=== PATIENT | female | born 1995 | race Caucasian/White ===

== ENCOUNTER 2019-02-05 10:22 | Emergency (ER) | payer MEDICAID, OTHER ==
[~2019-02-05] VITALS: Ht 167.6 cm; Wt 74.8 kg
--- NOTE | 2019-02-05 10:41 | NUR ---
PT A/OX4, PRESENTS TO THE ER C/O RLQ ABD PAIN X 1 DAY. PAIN IS NON-PROVOKED, CRAMPING IN QUALITY, RADIATES TO THE BACK, 7/10, CONSTANT. PT REPORTS LBM APPROXIMATELY 2 DAYS AGO, WHICH IS NORMAL FOR HER. ABD NON-DISTENDED IN APPEARANCE. PT DENIES C/P, SOB, N/V/D, DIZZINESS, HEADACHE.
[2019-02-05 10:52] LABS: *BILIRUBIN,URIN NEGATIVE (NEGATIVE); *COLOR,URINE YELLOW (YELLOW); *KETONES,URINE NEGATIVE (NEGATIVE); *URINE HCG, QUAL NEGATIVE (NEGATIVE); *UROBILINOGEN,URINE 0.2 E.U./dl (NORMAL); LEUKOCYTE ESTERASE ,URINE TRACE (NEGATIVE); NITRITE, URINE NEGATIVE (NEGATIVE); UGLUCOSE NEGATIVE (NEGATIVE)
--- NOTE | 2019-02-05 10:59 | NUR ---
PABLITO THOMAS AT BEDSIDE FOR MSE.
[2019-02-05 11:01] LABS: *BLOOD, URINE TRACE (NEGATIVE); *CLARITY,URINE HAZY (CLEAR)
[2019-02-05 11:07] LABS: BACTERIA,URINE MANY /HPF (NONE SEEN); RBC,URINE 0-3 /HPF (0-3); SQUAMOUS EPITHELIAL CELL,UR MANY /HPF (NONE SEEN); YEAST,URINE FEW /HPF (NONE SEEN)
[2019-02-05 11:08] LABS: MUCUS,URINE FEW /LPF (0-FEW)
[2019-02-05] MEDS ORDERED: HYDROCODONE/APAP 5-325MG TABLET ONE (11:14)
[2019-02-05] MEDS ORDERED: HYDROCODONE/APAP 5-325MG TABLET PO ONE (11:15)
[2019-02-05] MEDS ORDERED: IBUPROFEN 800 MG TABLET ONE (11:16)
[2019-02-05] MEDS ORDERED: IBUPROFEN 800 MG TABLET PO ONE (11:30)
--- NOTE | 2019-02-05 11:51 | NUR ---
US TECH AT BEDSIDE.
--- NOTE | 2019-02-05 12:25 | NUR ---
Patient discharged to home in stable conditon. Written and verbal after care instructions given. Patient verbalizes understanding of instructions. ALL BELONGINGS W/ PT. PT SELF-AMBULATED W/O DIFFICULTY.
[2019-02-05 12:26] VITALS: BP 116/72
== END 2019-02-05 12:26 | disposition home or self-care (01) ==
LOC: ER 10:22
DX: N83.201 Unspecified ovarian cyst, right side (principal)
CPT/HCPCS: 84703; A4663

== ENCOUNTER 2019-02-06 15:17 | Emergency (ER) | payer OTHER ==
[~2019-02-06] VITALS: Ht 167.6 cm; Wt 74.8 kg
--- NOTE | 2019-02-06 16:03 | NUR ---
PABLITO THOMAS AT BEDSIDE FOR MSE.
[2019-02-06] MEDS ORDERED: KETOROLAC TROMETHAMINE 30 MG INJ ONE (17:26)
[2019-02-06] MEDS ORDERED: ONDANSETRON 4 MG/2 ML VIAL ONE (17:26)
[2019-02-06] MEDS ORDERED: ONDANSETRON ODT 4 MG TAB.RAPDIS SL ONE (17:30)
[2019-02-06] MEDS ORDERED: KETOROLAC TROMETHAMINE 30 MG INJ IM ONE (17:30)
[2019-02-06] MEDS ORDERED: ONDANSETRON 4 MG/2 ML VIAL IM ONE (17:45)
[2019-02-06 18:39] VITALS: BP 110/62
== END 2019-02-06 18:39 | disposition home or self-care (01) ==
LOC: ER 15:17
DX: N83.201 Unspecified ovarian cyst, right side (principal)
CPT/HCPCS: 76856; 96372 ×2; 99284; J1885; J2405; A4663

== ENCOUNTER 2019-02-19 10:47 | Emergency (ER) | payer OTHER, MEDICAID ==
[~2019-02-19] VITALS: Ht 167.6 cm; Wt 74.8 kg
[2019-02-19] MEDS ORDERED: HYDROMORPHONE 1 MG/1 ML DISP.SYRIN IV ONE (11:30)
[2019-02-19] MEDS ORDERED: ONDANSETRON 4 MG/2 ML VIAL IV ONE (11:30)
[2019-02-19] MEDS ORDERED: IV NORMAL SALINE 1000 ML BAG IV ONE ×2 (11:30→12:45)
[2019-02-19] MEDS ORDERED: HYDROMORPHONE 1 MG/1 ML DISP.SYRIN ONE (11:31)
[2019-02-19] MEDS ORDERED: ONDANSETRON 4 MG/2 ML VIAL ONE ×2 (11:31→12:48)
[2019-02-19 11:45] LABS: BASOPHILS % (AUTO) 0.3 % (0.0-2.0); EOSINOPHILS # (AUTO) 0.1 K/uL (0.0-0.7); EOSINOPHILS % (AUTO) 0.6 % (0.0-7.0); HEMATOCRIT 38.6 % (31.2-41.9); HEMOGLOBIN 13.3 g/dL (10.9-14.3); LYMPHOCYTES # (AUTO) 1.3 K/uL (20.0-40.0); LYMPHOCYTES % (AUTO) 12.1 % (20.5-51.5); MEAN CORPUSCULAR HGB CONC 35 g/dL (32.3-35.6); MONOCYTES # (AUTO) 0.4 K/uL (2.0-10.0); MONOCYTES % (AUTO) 3.7 % (0.0-11.0); NEUTROPHILS # (AUTO) 8.9 K/uL (1.8-8.9); NEUTROPHILS % (AUTO) 83.3 % (38.5-71.5); PLATELET COUNT (AUTO) 303 K/uL (179-408); RED BLOOD CELL COUNT(AUTO) 4.43 MIL/uL (3.63-4.92); WHITE BLOOD COUNT (AUTO) 10.7 K/uL (3.8-11.8)
[2019-02-19 11:55] LABS: CARBON DIOXIDE 24 mmol/L (21-32); CHLORIDE 102 mmol/L (98-107); CREATININE 0.7 mg/dL (0.6-1.3); GLUCOSE 104 mg/dL (74-106); POTASSIUM 4.3 mmol/L (3.5-5.1); UREA NITROGEN, BLOOD 8 mg/dL (7-18)
[2019-02-19 12:00] LABS: ALANINE AMINOTRANSFERASE 23 U/L (14-59); ALKALINE PHOSPHATASE 51 U/L (50-136); ASPARTATE AMINOTRANSFERASE 14 U/L (15-37); BILIRUBIN,DIRECT 0.1 mg/dL (0.0-0.2); BILIRUBIN,TOTAL 0.3 mg/dL (0.2-1.0); LIPASE 125 U/L (73-393); TOTAL PROTEIN, SERUM 8.1 g/dL (6.4-8.2)
--- NOTE | 2019-02-19 12:32 | NUR ---
Female print line operator accompanied female patient for ( [employer] tech).
[2019-02-19] MEDS ORDERED: ONDANSETRON IV *ER 4 MG/2 ML VIAL IV ONE (12:45)
--- NOTE | 2019-02-19 13:01 | NUR ---
Patient is resting comfortably in bed with eyes closed,NAD noted.
--- NOTE | 2019-02-19 15:06 | NUR ---
IV removed. Catheter intact and site benign. Pressure and 4x4 gauze applied to site. No bleeding noted.
[2019-02-19 15:09] VITALS: BP 110/76
== END 2019-02-19 15:10 | disposition home or self-care (01) ==
LOC: ER 10:47
DX: R10.31 Right lower quadrant pain (principal); R11.2 Nausea with vomiting, unspecified; K59.00 Constipation, unspecified
CPT/HCPCS: 36415; 71045; 76856; 80048; 80076; 83690; 84702; 85025; 93005; 96361; 96374; 96375; 96376; 99284; J1170; J2405 ×2; A4663; J7030

== ENCOUNTER 2019-10-28 15:46 | Emergency (ER) | payer MEDICAID, OTHER ==
[~2019-10-28] VITALS: Ht 167.6 cm; Wt 74.8 kg
--- NOTE | 2019-10-28 15:50 | NUR ---
Dr Sweet at the bedside for MSE.
[2019-10-28] MEDS ORDERED: CEFTRIAXONE 1 G VIAL ONE (15:59)
[2019-10-28] MEDS ORDERED: LIDOCAINE HCL 1% 20 ML VIAL ONE (15:59)
[2019-10-28] MEDS: CEFTRIAXONE 1 G VIAL IM ONE (16:02)
[2019-10-28] MEDS ORDERED: IBUPROFEN 600 MG TABLET ONE (16:04)
[2019-10-28] MEDS: IBUPROFEN 600 MG TABLET PO ONE (16:13)
[2019-10-28 16:18] VITALS: BP 127/77
--- NOTE | 2019-10-28 16:20 | NUR ---
Patient discharged to home in stable conditon. Written and verbal after care instructions given. Patient verbalizes understanding of instructions.
== END 2019-10-28 16:20 | disposition home or self-care (01) ==
LOC: ER 15:47
DX: J02.9 Acute pharyngitis, unspecified (principal); R51 Headache
CPT/HCPCS: 96372; 99283; J0696; J3490; A4663

== ENCOUNTER 2019-11-11 08:42 | Emergency (ER) | payer MEDICAID, OTHER ==
[~2019-11-11] VITALS: Ht 167.6 cm; Wt 74.8 kg
[2019-11-11] MEDS ORDERED: MORPHINE SULFATE 2 MG/1 ML DISP.SYRIN IV ONE (09:30)
[2019-11-11] MEDS ORDERED: IV NORMAL SALINE 1000 ML BAG IV ONE ×2 (09:30→12:15)
[2019-11-11] MEDS ORDERED: ONDANSETRON 4 MG/2 ML VIAL IV ONE ×3 (09:30→14:45)
[2019-11-11 09:40] LABS: *CLARITY,URINE CLOUDY (CLEAR); *COLOR,URINE AMBER (YELLOW)
[2019-11-11 09:41] LABS: *BILIRUBIN,URIN NEGATIVE (NEGATIVE); *BLOOD, URINE 3+ (NEGATIVE); *KETONES,URINE NEGATIVE (NEGATIVE); *UROBILINOGEN,URINE 0.2 E.U./dl (NORMAL); LEUKOCYTE ESTERASE ,URINE TRACE (NEGATIVE); NITRITE, URINE NEGATIVE (NEGATIVE); UGLUCOSE NEGATIVE (NEGATIVE)
[2019-11-11 09:46] LABS: BASOPHILS % (AUTO) 0.7 % (0.0-2.0); EOSINOPHILS # (AUTO) 0.1 K/uL (0.0-0.7); EOSINOPHILS % (AUTO) 1.1 % (0.0-7.0); HEMATOCRIT 39.2 % (31.2-41.9); HEMOGLOBIN 13.4 g/dL (10.9-14.3); LYMPHOCYTES # (AUTO) 1.8 K/uL (20.0-40.0); LYMPHOCYTES % (AUTO) 28.1 % (20.5-51.5); MEAN CORPUSCULAR HEMOGLOBIN 30.5 uug (24.7-32.8); MEAN CORPUSCULAR HGB CONC 34 g/dL (32.3-35.6); MEAN CORPUSCULAR VOLUME 88.8 fL (75.5-95.3); MONOCYTES # (AUTO) 0.5 K/uL (2.0-10.0); MONOCYTES % (AUTO) 8.3 % (0.0-11.0); NEUTROPHILS # (AUTO) 3.9 K/uL (1.8-8.9); NEUTROPHILS % (AUTO) 61.8 % (38.5-71.5); PLATELET COUNT (AUTO) 384 K/uL (179-408); RED BLOOD CELL COUNT(AUTO) 4.41 MIL/uL (3.63-4.92); WHITE BLOOD COUNT (AUTO) 6.4 K/uL (3.8-11.8)
--- NOTE | 2019-11-11 09:46 | NUR ---
PT IS IN ROOM #2A. DR AVILA EVALUATED THE PT.
[2019-11-11 09:54] LABS: *URINE HCG, QUAL NEGATIVE (NEGATIVE)
[2019-11-11 09:55] LABS: CREATININE 0.7 mg/dL (0.6-1.3); POTASSIUM 3.6 mmol/L (3.5-5.1)
[2019-11-11 09:55] LABS: BACTERIA,URINE R /HPF (NONE SEEN); RBC,URINE TNTC /HPF (0-3); SQUAMOUS EPITHELIAL CELL,UR MANY /HPF (NONE SEEN)
[2019-11-11 10:09] LABS: BILIRUBIN,DIRECT 0.1 mg/dL (0.0-0.2); BILIRUBIN,TOTAL 0.5 mg/dL (0.2-1.0); TOTAL PROTEIN, SERUM 7.6 g/dL (6.4-8.2)
[2019-11-11] MEDS ORDERED: ONDANSETRON 4 MG/2 ML VIAL ONE ×3 (10:14→14:36)
[2019-11-11] MEDS ORDERED: MORPHINE SULFATE 4 MG/1 ML DISP.SYRIN ONE ×2 (10:14→10:42)
[2019-11-11] MEDS ORDERED: MORPHINE SULFATE 4 MG/1 ML DISP.SYRIN IV ONE (10:15)
[2019-11-11] MEDS ORDERED: HYDROMORPHONE 1 MG/1 ML DISP.SYRIN IV ONE (12:00)
[2019-11-11] MEDS ORDERED: HYDROMORPHONE 1 MG/1 ML DISP.SYRIN ONE (12:09)
--- NOTE | 2019-11-11 12:33 | NUR ---
Female relay operator accompanied female patient for (dr López).
--- NOTE | 2019-11-11 12:37 | NUR ---
DR AVILA TALKED TO DR RAO ABOUT PT's DIAGNOSIS.
[2019-11-11] MEDS ORDERED: PANTOPRAZOLE SODIUM 40 MG VIAL IV ONE (12:45)
[2019-11-11] MEDS ORDERED: PANTOPRAZOLE SODIUM 40 MG VIAL ONE (13:04)
[2019-11-11] MEDS ORDERED: DEXTROSE 50% 50 ML DISP.SYRIN ONE (14:12)
[2019-11-11] MEDS ORDERED: DEXTROSE 50% 50 ML DISP.SYRIN IV ONE (14:15)
[2019-11-11] MEDS ORDERED: diphenhydrAMINE 50 MG/1 ML VIAL ONE (14:32)
[2019-11-11] MEDS ORDERED: METOCLOPRAMIDE HCL 10 MG/2 ML VIAL ONE (14:33)
[2019-11-11] MEDS ORDERED: diphenhydrAMINE 50 MG/1 ML VIAL IV ONE (14:45)
[2019-11-11] MEDS ORDERED: METOCLOPRAMIDE HCL 10 MG/2 ML VIAL IV ONE (14:45)
--- NOTE | 2019-11-11 16:16 | NUR ---
pt was d/c'D to home. d/c instructions given to the pt by dr López.
[2019-11-11 16:19] VITALS: BP 125/77
== END 2019-11-11 16:19 | disposition home or self-care (01) ==
LOC: ER 08:42
DX: R10.31 Right lower quadrant pain (principal); R11.10 Vomiting, unspecified; N93.9 Abnormal uterine and vaginal bleeding, unspecified
CPT/HCPCS: 36415; 74176; 76705; 76856; 80048; 80076; 81000; 81001; 83690; 84703; 85025; 96361; 96374; 96375; 96376; 99284; C9113; J1170; J2270 ×2; J2405 ×3; J3490; A4663; J1200; J2765; J7030

== ENCOUNTER 2019-11-16 19:59 | Emergency (ER) | payer SELFPAY ==
[~2019-11-16] VITALS: Ht 167.6 cm; Wt 74.8 kg
[2019-11-16] MEDS ORDERED: BIRTHCONTROL 1 TAB PO DAILY (20:10)
[2019-11-16] MEDS ORDERED: OMEP40CA PO (20:10)
[2019-11-16 20:38] LABS: BASOPHILS # (AUTO) 0.1 K/uL (0.0-8.0); BASOPHILS % (AUTO) 1.3 % (0.0-2.0); EOSINOPHILS # (AUTO) 0.3 K/uL (0.0-0.7); HEMATOCRIT 38.9 % (31.2-41.9); HEMOGLOBIN 13.4 g/dL (10.9-14.3); LYMPHOCYTES # (AUTO) 2.6 K/uL (20.0-40.0); LYMPHOCYTES % (AUTO) 27.6 % (20.5-51.5); MEAN CORPUSCULAR HEMOGLOBIN 30.5 uug (24.7-32.8); MEAN CORPUSCULAR HGB CONC 35 g/dL (32.3-35.6); MEAN CORPUSCULAR VOLUME 88.1 fL (75.5-95.3); MONOCYTES # (AUTO) 0.8 K/uL (2.0-10.0); MONOCYTES % (AUTO) 8.9 % (0.0-11.0); NEUTROPHILS # (AUTO) 5.5 K/uL (1.8-8.9); NEUTROPHILS % (AUTO) 59.2 % (38.5-71.5); PLATELET COUNT (AUTO) 379 K/uL (179-408); RED BLOOD CELL COUNT(AUTO) 4.41 MIL/uL (3.63-4.92); WHITE BLOOD COUNT (AUTO) 9.4 K/uL (3.8-11.8)
[2019-11-16 20:46] LABS: CREATININE 0.8 mg/dL (0.6-1.3); POTASSIUM 4.4 mmol/L (3.5-5.1)
[2019-11-16 20:52] LABS: BILIRUBIN,TOTAL 0.6 mg/dL (0.2-1.0)
--- NOTE | 2019-11-16 21:03 | NUR ---
Pt provided urine sample, sent to lab.
[2019-11-16 21:07] LABS: *CLARITY,URINE CLEAR (CLEAR); *COLOR,URINE YELLOW (YELLOW); PH,URINE 7.5 (5.0-8.0); UGLUCOSE NEGATIVE (NEGATIVE)
[2019-11-16 21:08] LABS: *BILIRUBIN,URIN NEGATIVE (NEGATIVE); *KETONES,URINE NEGATIVE (NEGATIVE); *URINE HCG, QUAL NEGATIVE (NEGATIVE); *UROBILINOGEN,URINE 0.2 E.U./dl (NORMAL); LEUKOCYTE ESTERASE ,URINE NEGATIVE (NEGATIVE); NITRITE, URINE NEGATIVE (NEGATIVE)
[2019-11-16 21:09] LABS: *BLOOD, URINE TRACE (NEGATIVE)
[2019-11-16 21:13] LABS: SQUAMOUS EPITHELIAL CELL,UR FEW /HPF (NONE SEEN); WBC,URINE 0-3 /HPF (0-3)
--- NOTE | 2019-11-16 22:14 | NUR ---
Patient discharged to home in stable conditon. Written and verbal after care instructions given. Patient verbalizes understanding of instructions. PATIENT LEFT WITH STABLE GAIT.
[2019-11-16 22:15] VITALS: BP 114/45
== END 2019-11-16 22:15 | disposition home or self-care (01) ==
LOC: ER 19:59
DX: N83.202 Unspecified ovarian cyst, left side (principal); N93.9 Abnormal uterine and vaginal bleeding, unspecified; Z79.899 Other long term (current) drug therapy
CPT/HCPCS: 36415; 76856; 84703; 85025; A4663

== ENCOUNTER 2021-10-07 20:18 | Emergency (ER) | payer MEDICAID ==
[~2021-10-07] VITALS: Ht 167.6 cm; Wt 77.1 kg
[~2021-10-07 20:18] MED LIST: BIRTHCONTROL 1 TAB PO DAILY; OMEP40CA PO
--- NOTE | 2021-10-07 22:00 | NUR ---
PT AMBULATED TO ER WITH STEADY GAIT C/O LT BIG TOE PAIN X1 WEEK WITH SWELLING AND REDNESS THAT STARTED 3 DAYS AGO.
--- NOTE | 2021-10-07 22:04 | NUR ---
DR. MENSAH AT BEDSIDE, MSE IN PROGRESS.
[2021-10-07] MEDS: LIDOCAINE HCL 1% 20 ML VIAL IJ ONE (23:23)
[2021-10-07] MEDS: NEOMY/BACITRA/POLYMYXIN B OINT UD PACKET TP ONE (23:36)
[2021-10-07] MEDS ORDERED: NEOMY/BACITRA/POLYMYXIN B OINT UD PACKET TP ONE (23:37)
[2021-10-07] MEDS ORDERED: CEPH500C2 PO (23:39)
[2021-10-07 23:44] VITALS: BP 135/80
--- NOTE | 2021-10-07 23:44 | NUR ---
Patient discharged to home in stable condition. Written and verbal after care instructions given. Patient verbalizes understanding of instructions. Stressed follow up or return to ER for worsening s/s. Steady gait, denies any pain upon discharge, LT big toe covered in clean dry dressing.
[2021-10-08 00:09] LABS: *URINE HCG, QUAL NEGATIVE (NEGATIVE)
== END 2021-10-07 23:45 | disposition home or self-care (01) ==
LOC: ER 20:19
DX: L60.0 Ingrowing nail (principal); L03.032 Cellulitis of left toe
CPT/HCPCS: 11765; 84703; 99284; J3490; A4663